=== PATIENT | female | born 1945 | race Caucasian/White ===

== ENCOUNTER → 2017-12-26 | Outpatient (CLI) | payer MEDICARE, OTHER ==
[~2017-12-26] VITALS: Ht 167.6 cm; Wt 70.3 kg
[~2017-12-26] MED LIST: ACET-2222 PO; ASPI-586 PO; BUPR150T7 PO; CATHETER FLUSH 10 ML SYR IV PRN; DCS100C PO; ESTR1PAT31 TD; FLUC200T5 PO; GEMF600T3 PO; IBP800T PO; KRIL500C PO; LEVO75TA57 PO; LIOT5TAB3 PO; LISI1TAB10 PO; MAGN400T6 PO; PANT40TA3 PO; POTA10TA86 PO
[2017-12-26 08:08] VITALS: BP 154/83
--- NOTE | 2017-12-27 12:10 | Cardiology Stress Test Report ---
Stress Test Report Type of NM Stress Test: Test Type: NUCLEAR TREADMILL Date of Procedure/Referring: Date of Procedure: Dec 26, 2017 PCP Gianluca Chaney DO Admitting Physician Gianluca Chaney DO Indications: Chest pain Baseline Blood Pressure: Blood Pressure Systolic: 154 Blood Pressure Diastolic: 83 Summary & Conclusion: Summary: Please review please review stress test report by Dr. Chaney. 10.84 mCi of Myoview were given for rest imaging and 31.0 mCi of Myoview given for stress imaging. Transient ischemic dilatation score 1.08, EF 75 percent. Normal wall motion. Normal myocardial perfusion imaging during rest and stress. Conclusion: Normal LV function with no wall motion abnormalities. Normal myocardial perfusion imaging during rest and stress. Copy Copies To 1: GIANLUCA CHANEY M RIZWAN MD Dec 27, 2017 12:10
== END ==
LOC: CARD 06:35
PROVIDERS: ATTEND Internal Medicine
DX: R07.9 Chest pain, unspecified (principal); R00.2 Palpitations
CPT/HCPCS: 78452; 93017

== ENCOUNTER 2018-01-20 12:30 | Outpatient (CLI) | payer MEDICARE, OTHER ==
[~2018-01-20] VITALS: Ht 167.6 cm; Wt 70.3 kg
[~2018-01-20 12:30] MED LIST changes: -CATHETER FLUSH 10 ML SYR IV PRN
[2018-01-20] MEDS ORDERED: UBID100C17 PO (12:49)
[2018-01-20] MEDS ORDERED: FAMO20TA3 PO (12:49)
[2018-01-20] MEDS ORDERED: BUPR300T51 PO (12:49)
[2018-01-20] MEDS ORDERED: LEVO75TA6 PO (12:49)
[2018-01-20] MEDS ORDERED: OMEP40CA36 PO (12:49)
[2018-01-20] MEDS ORDERED: ESTR1PAT73 TD (12:49)
[2018-01-20] MEDS ORDERED: CRAN425C2 PO (12:49)
[2018-01-20] MEDS ORDERED: POTA10TA10 PO (12:49)
[2018-01-20] MEDS ORDERED: CHOL10003 PO (12:49)
[2018-01-20] MEDS ORDERED: LISI1TAB10 PO (12:49)
[2018-01-20] MEDS ORDERED: ATOR10TA66 PO (12:49)
== END 2018-01-20 12:52 | disposition home or self-care (01) ==
LOC: PREOP 12:30
PROVIDERS: ATTEND Internal Medicine
DX: Z01.818 Encounter for other preprocedural examination (principal)

== ENCOUNTER 2018-01-23 06:53 | Day surgery (SDC) | payer MEDICARE, OTHER ==
[~2018-01-23] VITALS: Ht 167.6 cm; Wt 70.3 kg
[~2018-01-23 06:53] MED LIST changes: +ATOR10TA66 PO; +BUPR300T51 PO; +CHOL10003 PO; +CRAN425C2 PO; +ESTR1PAT73 TD; +FAMO20TA3 PO; +LEVO75TA6 PO; +OMEP40CA36 PO; +POTA10TA10 PO; +UBID100C17 PO
[2018-01-23] MEDS ORDERED: D5 LR IV SOLUTION 1,000 ML IV ONE (07:04)
[2018-01-23] MEDS ORDERED: ONDANSETRON 4 MG/2 ML (SDV) Z0FRAN ONE (07:14)
[2018-01-23] MEDS ORDERED: MIDAZOLAM 2 MG/2 ML (VERSED) VIAL ONE ×2 (07:19)
[2018-01-23] MEDS ORDERED: fentaNYL INJECTION 100 MCG/2 ML AMP ONE (07:20)
[2018-01-23] MEDS ORDERED: HURRICAINE EXT TUBE (BENZOCAINE) ONE (07:20)
[2018-01-23] MEDS ORDERED: LIDOCAINE JELLY 2% 6 ML SYRINGE ONE (07:20)
--- OUTSIDE RECORDS SUMMARY | 2018-01-23 07:36 | XMS REPORT | Continuity of Care Document ---
Author Author [facility] Organization [facility] Address Unknown Phone Unavailable Allergies Active Description Code Type Severity Reaction Onset Reported/Identified Relationship to Patient Clinical Status Yes hydrocodone [id number] Drug Allergy Unknown NAUSEA 01/20/2018 Yes Sulfa (Sulfonamide Antibiotics) [id number] Drug Allergy Unknown N/A 2017 Medications There is no data. Problems Date Dx Coded Attending Type Code Diagnosis Diagnosed By 08/04/2010 Ot 569.0 ANAL RECTAL POLYP 08/04/2010 Ot V12.72 PERSONAL HISTORY OF COLONIC POLYPS 08/04/2010 Ot V67.09 SURGERY FOLLOW-UP, OTHER SURGERY 11/16/2011 788.1 DYSURIA 12/14/2011 V05.8 ZOSTAVAX DX 06/06/2012 AVNI KATZ MD Ot 618.00 UNSPECIFIED PROLAPSE OF VAGINAL MULLEN 06/06/2012 AVNI KATZ MD Ot 625.6 FEM STRESS INCONTINENCE 09/15/2015 Ot 240.9 GOITER NOS 09/15/2015 Ot 285.9 ANEMIA NOS 09/15/2015 Ot 618.00 UNSPECIFIED PROLAPSE OF VAGINAL MULLEN 09/15/2015 Ot 788.30 UNSPECIFIED URINARY INCONTINENCE 09/15/2015 Ot V72.63 PRE- PROCEDURAL LABORATORY EXAMINATION 09/15/2015 Ot V74.8 SCREEN- BACTERIAL DIS NEC 09/24/2015 ROCK BURCIAGA MD Ot Z01.818 ENCOUNTER FOR OTHER PREPROCEDURAL EXAMIN 09/24/2015 ROCK BURCIAGA MD Ot Z12.11 ENCOUNTER FOR SCREENING FOR MALIGNANT NE 09/25/2015 ROCK BURCIAGA MD Ot Z01.818 ENCOUNTER FOR OTHER PREPROCEDURAL EXAMIN 09/25/2015 ROCK BURCIAGA MD Ot Z12.11 ENCOUNTER FOR SCREENING FOR MALIGNANT NE 09/26/2015 Ot 240.9 GOITER NOS 09/26/2015 Ot 285.9 ANEMIA NOS 09/26/2015 Ot 618.00 UNSPECIFIED PROLAPSE OF VAGINAL MULLEN 09/26/2015 Ot 788.30 UNSPECIFIED URINARY INCONTINENCE 09/26/2015 Ot V72.63 PRE- PROCEDURAL LABORATORY EXAMINATION 09/26/2015 Ot V74.8 SCREEN- BACTERIAL DIS NEC 09/26/2015 ROCK BURCIAGA MD Ot Z12.11 ENCOUNTER FOR SCREENING FOR MALIGNANT NE 09/26/2015 ROCK BURCIAGA MD Ot Z80.0 FAMILY HISTORY OF MALIGNANT NEOPLASM OF 10/01/2015 ROCK BURCIAGA MD Ot Z12.11 ENCOUNTER FOR SCREENING FOR MALIGNANT NE 10/01/2015 ROCK BURCIAGA MD Ot Z80.0 FAMILY HISTORY OF MALIGNANT NEOPLASM OF 01/01/2018 ALLAN DOGIANLUCA Ot R00.2 PALPITATIONS 01/01/2018 GIANLUCA LEMUS DO Ot R07.9 CHEST PAIN, UNSPECIFIED 01/19/2018 GIANLUCA LEMUS DO Ot R00.2 PALPITATIONS 01/19/2018 LEMUSGIANLUCA MARIEE DO Ot R07.9 CHEST PAIN, UNSPECIFIED Procedures There is no data. Results There is no data. Encounters ACCT No. Visit Date/Time Discharge Status Pt. Type Provider Facility Loc./Unit Complaint [id number] 03/04/2014 11:00:22 03/04/2014 23:59:59 CLS Outpatient Dany Stauffer [id number] 01/20/2018 12:30:00 01/20/2018 12:52:00 DIS Outpatient ROCK BURCIAGA MD [facility] PREOP EGD [id number] 12/26/2017 06:35:00 12/26/2017 23:59:59 CLS Outpatient GIANLUCA LEMUS DO [facility] CARD CHEST PAIN, PALPITATIONS [id number] 09/26/2015 07:39:00 09/26/2015 10:00:00 DIS Outpatient ROCK BURCIAGA MD [facility] SDC SCREENING [id number] 09/24/2015 05:48:00 09/24/2015 12:55:00 DIS Outpatient ROCK BURCIAGA MD [facility] PREOP SCREENING [id number] 06/04/2012 06:05:00 06/06/2012 10:40:00 DIS Outpatient AVNI KATZ MD [facility] RECURRENT VAGINAL PROLAPSE,INCONTINENCE [id number] 01/23/2018 07:30:00 PEN Preadmit PATRICA RUBIO, ROCK Cancino [facility] ENDO EPIGASTRIC PAIN/CHEST PAIN/WT LOSS [id number] 05/29/2012 11:50:00 Document Registration [id number] 07/26/2011 08:41:00 Document Registration [id number] 08/04/2010 07:59:00 Document Registration [id number] 01/04/2018 13:03:00 01/04/2018 23:59:00 DIS Outpatient AVNI KATZ [id number] 01/03/2017 10:58:00 01/03/2017 23:59:00 DIS Outpatient AVNI KATZ [id number] 12/14/2011 13:10:00 12/14/2011 23:59:59 CLS Outpatient [id number] 05/26/2017 13:51:41 05/26/2017 23:59:59 DIS Outpatient Letha Stauffer [facility]
--- OUTSIDE RECORDS SUMMARY | 2018-01-23 07:36 | XMS REPORT | Continuity of Care Document ---
Author Author [facility] Organization [facility] Address Unknown Phone Unavailable Support Name Relationship Address Phone ANTON ROJAS Next Of Kin [id number] [place] [address] Insurance Providers Payer Name Policy Number Subscriber Name Relationship [facility] [id number] Christa De Leon 01 Self / Same As Patient Advance Directives Directive Response Recorded Date Advance Directives N 06/05/12 6:25am Health Care Power of Malware Analyst N 06/05/12 6:25am Organ Donor N 06/05/12 6:25am Problems No Known Problems or Medical conditions. Family History History Response Recorded Date/Time Hx Family Cancer Y 05/29/12 12:17pm Hx Family Breast Cancer Y AUNT AND COUSIN 05/29/12 12:17pm Social History History Response Recorded Date/Time Alcohol Use Denies Use 06/05/12 10:13am Recreational Drug Use N 06/05/12 10:13am Recent Foreign Travel N 06/05/12 10:13am Recent Infectious Disease Exposure N 10:13am Hospitalization with Isolation Denies 03/22 3:04pm Allergies, Adverse Reactions, Alerts Allergen Type Severity Reaction Last Updated Hydrocodone Allergy NAUSEA 05/29/12 Medications Medication Dose Units Route Sig Qty Days Docusate Sodium (Colace) 100 Mg PO BID 60 Ibuprofen (Motrin) 800 Mg PO Q6HR PRN 60 Acetaminophen/Codeine (Tylenol/Cod Tab) 1 Tab PO Q3H PRN 60 HCTZ/Lisinopril (Lisinopril-Hctz 20-25MG Tab) 20 - 25 Mg PO DAILY Levothyroxine Sodium (Synthroid) 75 Mcg PO DAILY Gemfibrozil 600 Mg PO BID Potassium Chloride (K-Tab 10 Meq Tab) 10 Meq PO DAILY Bupropion Hcl (Bupropion Xl) 150 Mg PO DAILY Estradiol (Estradiol Patch 0.1 Mg/Day) 0.1 Mg TD DAILY Immunizations Name Given Type pneumococcal polysaccharide PPV23 06/06/12 A Response Recorded Date/Time Status not known Unknown Results No Known Relevant Diagnostic Tests, Laboratory Data and/or Discharge Summary. Procedures Procedure Code Date LESION REMOVE COLONOSCOPY 36116 08/31/05 CYSTOCEL/RECTOCEL REPAIR 70.50 07/10/07 CUL-DE-SAC OPERATION NEC 70.92 07/10/07 VAGINAL SUSPENS & FIXAT 70.77 07/10/07 URIN INCONTIN REPAIR NEC 59.79 07/10/07 LESION REMOVAL COLONOSCOPY 22564 EXTENSIVE REPAIR OF VAGINA 89468 REPAIR BLADDER DEFECT 18125 06/04/12 Encounters Encounter Location Date/Time Discharged Inpatient [facility] 12: 00am
[2018-01-23] MEDS ORDERED: proPOfol 200 MG/20 ML (DIPRIVAN) VIAL IV ONE (07:44)
[2018-01-23] MEDS ORDERED: D5 LR IV SOLUTION 1,000 ML IV STA (07:47)
[2018-01-23] MEDS ORDERED: MIDAZOLAM 2 MG/2 ML (VERSED) VIAL IVP ONE (08:00)
[2018-01-23] MEDS ORDERED: fentaNYL INJECTION 100 MCG/2 ML AMP IVP ONE (08:00)
[2018-01-23] MEDS ORDERED: HURRICAINE EXT TUBE (BENZOCAINE) XX PRN (08:00)
[2018-01-23] MEDS ORDERED: LIDOCAINE JELLY 2% 6 ML SYRINGE MM PRN (08:00)
--- NOTE | 2018-01-23 08:00 | Pre-Op Note & Conscious Sedat ---
Pre-Operative Progress Note H&P Reviewed The H&P was reviewed, patient examined and no changes noted. Date H&P Reviewed: Jan 23, 2018 Time H&P Reviewed: 07:10 Conscious Sedation Pre-Proced ASA Score 2 For ASA 3 and 4: Consider anesthesia and medical clearance. Also, for patients with a history of failed moderate sedation consider anesthesia. Airway Lungs Heart ASA score ASA 1: a normal healthy patient ASA 2: a patient with a mild systemic disease (mid diabetes, controlled hypertension, obesity ASA 3: a patient with a severe systemic disease that limits activity (angina , COPD, prior Myocardial infarction) ASA 4: a patient with an incapacitating disease that is a constant threat to life (CHF, renal failure) ASA 5: a moribund patient not expected to survive 24 hrs. (ruptured aneurysm) ASA 6: a declared brain patient whose organs are being harvested. For emergent operations, add the letter E after the classification Mallampati Classification Grade 2 Sedation Plan Analgesia, Amnesia, Plan communicated to team members, Discussed options with patient/fam, Discussed risks with patient/fam The patient is an appropriate candidate to undergo the planned procedure, sedation, and anesthesia. The patient immediately re-assessed prior to indication. ROCK BURCIAGA MD Jan 23, 2018 08:00
[2018-01-23 08:04] VITALS: BP 168/84
[2018-01-23 08:07] VITALS: BP 168/84
[2018-01-23 08:10] VITALS: BP 109/58
--- NOTE | 2018-01-23 08:15 | Anesthesia-Procedure Note ---
Procedures/Interventions Procedure Start/Stop/Diagnosis Date of Procedure: Jan 23, 2018 Start Time: 07:45 Referring Physician: Millie Preprocedural Diagnosis: rescue sedation for EGD Brief History MAC- ASA 2. Called to Endo to assist with sedation for EGD. Patient had received Versed 4mg , Fentanyl 50mcg IV without adequate response for procedure. Brief report obtained from nursing staff. Propofol titrated to effect to a total of 60mg with desired response. Procedure completed without event. Reported to CLARIBEL Suero. VSS throughout, see nurses notes for specifics. Stop Time: 07:55 JENN FLEMING CRNA Jan 23, 2018 08:15
[2018-01-23 08:40] VITALS: BP 122/66
[2018-01-23 08:55] VITALS: BP 122/66
[2018-01-23] MEDS ORDERED: ONDANSETRON 4 MG/2 ML (SDV) Z0FRAN IVP ONE (09:00)
--- NOTE | 2018-01-23 10:22 | Anesthesia-General Post-Op ---
MAC Patient Condition Mental Status/LOC: Same as Preop Cardiovascular: Satisfactory Nausea/Vomiting: Absent Respiratory: Satisfactory Pain: Controlled Complications: Absent Post Op Complications Complications None Follow Up Care/Instructions Patient Instructions None needed. Anesthesiology Discharge Order Discharge Order Patient is doing well, no complaints, stable vital signs, no apparent adverse anesthesia problems. No complications reported per nursing. JENN FLEMING CRNA Jan 23, 2018 10:22
--- NOTE | 2018-01-23 11:13 | OPERATIVE REPORT ---
DATE OF SERVICE: EGD SUMMARY INDICATION FOR THE PROCEDURE: Epigastric pain, chest pain and weight loss. The patient was placed in left lateral decubitus position. The endoscope was inserted into the oral cavity under direct visualization, the esophagus was intubated. The endoscope was passed down the esophagus through the stomach and second portion of the duodenum. Careful inspection was made as the endoscope was withdrawn. FINDINGS: The posterior hypopharynx, arytenoid aperture, true and false vocal folds were unremarkable with no evidence for erythema. Proximal, mid and distal esophagus were unremarkable. There is a small sliding hiatal hernia present. There is some mild erythema noted involving portions of the Z line, which was otherwise unremarkable. No evidence to suggest rings, webs, strictures, Jimenez's or erosive esophagitis were noted. A 2 cm of the stomach was present above the level of the diaphragm at the time of observation. The cardia, fundus and antrum of the stomach were unremarkable with no evidence for ulceration or erythema. The pylorus, the pyloric channel, the duodenal bulb and second portion of the duodenum were unremarkable. No evidence of peptic ulcer disease was noted. There was normal villous architecture on gross inspection of the duodenal bulb and second portion of the duodenum. The sphincter of Oddi was unremarkable on gross inspection as well. ASSESSMENT: Small hiatal hernia is present without evidence for erosive esophagitis. There are some patchy areas of erythema along the Z line. A biopsy was obtained and submitted for histopathology. Considering the patient is still having symptoms suspicious for reflux despite maximal acid reduction therapy, would consider proceeding with either abdominal sonography or CT evaluation of the abdomen for further investigation of other intra-abdominal pathology especially in light of weight loss. I thank you for the referral of this pleasant lady. Sincerely, Job ID: [id number] DocumentID: [id number] Dictated Date: 01/23/2018 08:11:09 Java Jsf Developer Date: 01/23/2018 11:13:00 Dictated By: ROCK BURCIAGA MD
--- NOTE | 2018-01-27 08:36 | HISTORY AND PHYSICAL ---
DATE OF SERVICE: EGD HISTORY AND PHYSICAL HISTORY OF PRESENT ILLNESS: The patient is a 72-year-old white female referred by Dr. Chaney for EGD evaluation. Over the past 5 to 6 weeks, she has noticed increased belching with epigastric pain. On several occasions after bending forward and then standing up, she has had gagging with bilious taste in the back of her mouth. She denies dysphagia and she also denies melena or bright red blood per rectum. She does report about a 7-pound weight loss over the past 2 months. She underwent an exercise stress test several weeks ago, which was reportedly normal. PAST MEDICAL HISTORY: Significant for hypertension, hypertriglyceridemia with no known history of coronary artery disease. PAST SURGICAL HISTORY: Significant for transvaginal hysterectomy and oophorectomy and she has had no intraperitoneal surgical procedures. FAMILY HISTORY: Father had history of colon cancer in his late 70s. I performed colonoscopy on her in 09/2015, which revealed no significant abnormalities. Mother at the age of 93 of natural causes. SOCIAL HISTORY: She has no past smoking history. 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 She reports intolerances the HYDROCODONE AND SULFA. She has had problems with narcotics in the past and did have some nausea following her colonoscopy 2 years ago. PHYSICAL EXAMINATION: GENERAL: Reveals a normal weight white female appears to be in no acute distress at 154.4 pounds. VITAL SIGNS: Her weight is down 9 pounds from 2 years ago, blood pressure 140/70. HEENT: Unremarkable. Sclerae nonicteric. She has a Mallampati class 2 oropharyngeal configuration. Posterior pharynx reveals no evidence for erythema. CHEST: Clear to auscultation. CARDIOVASCULAR: Reveals a regular rate and rhythm without murmur, S3 or S4. ABDOMEN: Soft, supple. There is some mild epigastric discomfort to palpation without rebound or guarding. Bowel sounds are positive. No mass or organomegaly is noted. EXTREMITIES: Reveal no cyanosis, clubbing or edema. ASSESSMENT AND PLAN: 1. For evaluation of reflux sounding symptoms with weight loss and epigastric pain. The patient was set up for EGD evaluation, scheduled for 01/23. We will plan on getting Zofran 4 mg IV to help mitigate any problems of nausea considering this patient's past history. I thank you for the referral of this pleasant lady. Sincerely, Job ID: [id number] DocumentID: [id number] Dictated Date: 01/18/2018 20:51:28 Audio Installer Date: 01/18/2018 21:51:54 Dictated By: ROCK BURCIAGA MD <Dictated by ROCK BURCIAGA MD> <Electronically signed by ROCK BURCIAGA MD> 01/22/182009
== END 2018-01-23 08:55 | disposition home or self-care (01) ==
LOC: ENDO 06:53
PROVIDERS: ATTEND Internal Medicine
DX: K44.9 Diaphragmatic hernia without obstruction or gangrene (principal); R10.13 Epigastric pain; R07.9 Chest pain, unspecified; R63.4 Abnormal weight loss; I10 Essential (primary) hypertension; E78.1 Pure hyperglyceridemia; Z80.0 Family history of malignant neoplasm of digestive organs
CPT/HCPCS: 88305

== ENCOUNTER → 2020-05-07 | Outpatient (CLI) | payer MEDICARE, OTHER ==
[~2020-05-07] MED LIST changes: -BUPR300T51 PO; +BUPR300T98 PO; +LIOT5TAB10 PO; -LIOT5TAB3 PO; +LISI1TAB26 PO; -MAGN400T6 PO; +MAGN400T8 PO; +OMEP40CA27 PO; -OMEP40CA36 PO; -PANT40TA3 PO; +PANT40TA52 PO
--- NOTE | 2020-05-07 13:51 | Diagnostic Imaging Report ---
CLINICAL INDICATION: Patient with bilateral carotid artery stenosis. Patient having confusion and cannot remember certain things. Patient with hypertension. COMPARISON: None EXAM: Real-time carotid Doppler duplex imaging is performed bilaterally. Peak systolic velocity, ICA/CCA peak systolic ratio, spectral analysis, and vascular morphology are studied. FINDINGS: ARTERY VELOCITY Right Left CCA 0.83 m/s 1.07 m/s ICA 0.78 m/s 0.61 m/s ECA 1.53 m/s 0.85 m/s ICA/CCA 0.9 0.6 VERT.ART Antegrade Antegrade There is minimal atherosclerotic disease involving the bilateral carotid arteries with no significant stenosis seen. IMPRESSION: 1: There is no grayscale or Doppler evidence of significant vascular stenosis. Dictated by: Dictated on workstation # [id number]
== END ==
LOC: RAD 10:14
PROVIDERS: ATTEND Nurse Practitioner Family
DX: I65.23 Occlusion and stenosis of bilateral carotid arteries (principal); I10 Essential (primary) hypertension
CPT/HCPCS: 93880

== ENCOUNTER → 2020-10-08 | Outpatient (CLI) | payer MEDICARE, OTHER ==
[~2020-10-08] MED LIST changes: -OMEP40CA27 PO; +OMEP40CA6 PO
== END ==
LOC: LABNPT 06:30
PROVIDERS: ATTEND Podiatrist
DX: Z01.812 Encounter for preprocedural laboratory examination (principal); Z20.822 Contact with and (suspected) exposure to COVID-19
CPT/HCPCS: 87635

== ENCOUNTER → 2022-06-24 | Outpatient (CLI) | payer MEDICARE, OTHER ==
[~2022-06-24] MED LIST changes: -FLUC200T5 PO; +FLUC200T9 PO; -LISI1TAB26 PO; +LISI1TAB48 PO; -MAGN400T8 PO; +MGX400T PO
--- NOTE | 2022-06-24 12:06 | Diagnostic Imaging Report ---
PROCEDURE: US carotid duplex, bilateral. TECHNIQUE: Multiple real-time grayscale images were obtained over the carotid arteries in various projections, bilaterally. Additional spectral analysis and color Doppler duplex images were also obtained. INDICATION: Atherosclerosis, peripheral vascular disease. Grayscale images show minimal atherosclerotic plaque. Velocities and waveforms appear normal in both carotid bifurcations. The vertebral arteries are both patent with antegrade flow. IMPRESSION: Minimal atherosclerotic change of the carotid bifurcations. There is no hemodynamically significant stenosis. Parameters based on the consensus panel Anthony-Scale and Doppler ultrasound criteria published December 2002, Radiology, Volume 229. DOPPLER (peak systolic velocity M/S Right Left CCA 0.81 1.03 ICA Proximal 0.87 0.63 ICA Mid 0.77 0.74 ICA Distal 0.90 0.84 RATIO 1.10 0.81 ECA 0.96 1.07 VERT 0.46 0.38 Dictated by: Dictated on workstation # [id number]
== END ==
LOC: RAD 09:00
PROVIDERS: ATTEND Internal Medicine
DX: I65.23 Occlusion and stenosis of bilateral carotid arteries (principal)
CPT/HCPCS: 93880